=== PATIENT | female | born 1985 | race Two or more races ===

== ENCOUNTER 2016-07-18 15:41 | Emergency (ER) | payer SELFPAY ==
[2016-07-18 16:11] LABS: ABSOLUTE NEUTROPHIL COUNT 10.4 K/mm3 (1.8-7.7); BASO # 0.1 K/mm3 (0.0-0.2); BASO % 0.4 % (0.2-1.0); EOS # 0.2 (0.0-0.5); EOS % 1.4 % (0.9-2.9); HEMATOCRIT 40.8 % (37.0-47.0); HEMOGLOBIN 14.2 gm/l (12.0-16.0); IMM NEUT # 0.1 K/mm3 (0-0.2); IMM NEUT% 0.3 % (0-1); LYMPH # 3.4 (1.0-4.8); LYMPH % 23.2 % (15-45); MEAN CELL VOLUME 93.4 fl (81.0-99.0); MEAN CORPUSCULAR HEMOGLOBIN 32.5 pg (27.0-31.0); MEAN CORPUSCULAR HGB CONC 34.8 g/dl (33.0-37.0); MEAN PLATELET VOLUME 10.6 fl (7.4-10.4); MONO # 0.7 (0.0-0.8); MONO % 4.6 % (4-12); NEUT % 70.1 % (43-75); PLATELET COUNT 268 K/mm3 (130-400); RED CELL DISTRIBUTION WIDTH 12.1 % (11.5-14.5)
[2016-07-18] MEDS ORDERED: SODIUM CHLORIDE 0.9% 1,000 ML ONE (16:11)
[2016-07-18] MEDS ORDERED: ONDANSETRON 4 MG/2ML 2 ML VIAL ONE (16:11)
[2016-07-18] MEDS ORDERED: KETOROLAC TROMETHAMINE 30 MG/ML 1 ML VIAL ONE (16:12)
[2016-07-18 16:22] LABS: ALB/GLOB RATIO 1.4 (>1.0); ALBUMIN 4.6 gm/dL (3.5-5.7); CALCIUM 10.4 mg/dL (8.6-10.3)
[2016-07-18 17:20] LABS: URINE BILIRUBIN NEGATIVE (NEGATIVE); URINE BLOOD NEGATIVE (NEGATIVE); URINE GLUCOSE (UA) NEGATIVE (NEGATIVE); URINE LEUKOCYTE ESTERASE NEGATIVE (NEGATIVE); URINE NITRITE NEGATIVE (NEGATIVE); URINE PROTEIN NEGATIVE (NEGATIVE); URINE UROBILINOGEN NORMAL (0-1 mg/dl)
[2016-07-18 17:30] LABS: URINE APPEARANCE CLOUDY; URINE COLOR YELLOW
[2016-07-18] MEDS ORDERED: HYDROMORPHONE HCL 1 MG/ML SYRINGE ONE ×2 (18:01→19:19)
--- NOTE | 2016-07-18 18:33 | CT ---
Name: RAMON PATIÑO Exam: Noncontrast renal stone CT Comparison: None Clinical History: Left flank pain Procedure: Helical CT using multidetector technique was applied to the abdomen and pelvis without contrast. Sagittal, axial and coronal reconstructions were obtained. An automated dose reduction technique was used to minimize patient radiation dose. Findings: CT abdomen (noncontrast): There is mild dependent basilar atelectasis. Heart is not enlarged. There is no pericardial effusion. Noncontrast images of the liver are normal. The gallbladder is surgically absent. There is no suspicious biliary dilation. Pancreas, spleen, adrenal glands, aorta, IVC and portal vein are within normal limits on this noncontrast exam. Right kidney is normal. There is moderate left hydronephrosis and perinephric stranding is identified. The left ureter is diffusely dilated. Small bowel, colon and retrocecal appendix are normal. There is no free air, free fluid or suspicious adenopathy. Regional skeleton is within normal limits. CT pelvis (noncontrast): Bladder is nearly empty. Neither ureter in the pelvis can't be clearly seen due to the lack of peritoneal fat. There are several calcifications within the left hemipelvis ranging between 3 mm and 7 mm in size. It is unknown which of these calcifications represent the offending/obstructing calculus. Uterus is midline. Ovaries are symmetric. Small bowel and colon are normal. There is no free air, free fluid or suspicious adenopathy. Impression: 1. Moderate hydronephrosis and marked ureterectasis on the left. There are multiple 3 to 7 mm calcifications in the left hemipelvis and is unclear by this exam which one represents the obstructing stone. 2. Normal appendix 3. Prior cholecystectomy Note: The above report was uploaded to [facility]'s electronic medical records system at 1829 hours.
[2016-07-18] MEDS ORDERED: OXYCODONE/ACETAMINOPHEN 5/325 MG TABLET ONE (19:10)
[2016-07-18] MEDS ORDERED: TAMSULOSIN HCL 0.4 MG CAPSULE.DR ONE (19:10)
== END 2016-07-18 20:17 | disposition home or self-care (01) ==
LOC: ED 15:41
DX: N23 Unspecified renal colic (principal)
CPT/HCPCS: 84703; 85025; 80053; 81003; 74176; 96375 ×2; 96376; 99284; 96374; 96361 ×4; 99283; J1170 ×2; A9270; J1885; J2405; J7030